=== PATIENT | male | born 2000 | race Caucasian/White ===

== ENCOUNTER 2025-05-25 11:45 | Emergency (ER) | payer MEDICAID ==
[~2025-05-25] VITALS: Ht 165.1 cm; Wt 75.0 kg
[2025-05-25 11:54] VITALS: BP 119/80; PULSE 84; RESP 15; TEMP 98.1; O2SAT 99
[2025-05-25] MEDS ORDERED: CIPR10DR RIGHT EAR (12:36)
--- NOTE | 2025-05-25 12:36 | Physician Documentation ---
History of Present Illness ~ Chief Complaint: Ear Pain Stated Complaint: EAR PAIN Time Seen by MD: 12:18 Source: patient Mode of Arrival: POV Exam Limitations: no limitations HPI 44-year-old male with complaints of right ear pain x4 days. No discharge muffled hearing. No fevers. Medication Reconciliation Allergies: Coded Allergies: No Known Allergies (Unverified , 05/25/25) Past Medical History Past Medical History: No Pertinent History Past Surgical History: noncontributory Lives with: Family Lives In: Home Occupation: employed Review of Systems All Other Systems at this time: Reviewed and Negative ENT: Reports: see HPI Physical Exam Vital Signs: RN Vital Signs have been reviewed: Yes, Temperature: 98.1, Source: Oral, Heart Rate: 84, Respiratory Rate: 15, BP: 119/80, Pulse Oximetry: 99, Weight: 75.000 Oxygen Flow Rate: 0 Physical Exam General: Alert, no apparent distress. HEENT: moist mucous membranes. Effusion noted bilaterally no erythema to tympanic membrane external canal of the right ear with mild erythema and inflammation. Neck: Full range of motion. Respiratory: No respiratory distress speaking in full sentences Chest: No accessory muscle use. Cardiovascular: Appears well perfused Neurologic: Oriented x4. Psychiatric: Normal mood and affect. Skin: Normal color, warm and dry. No edema, no ecchymosis. Progress Results/Orders Results/Orders Vital Signs 05/25/25 11:54 Temp 98.1 Pulse 84 Resp 15 B/P (MAP) 119/80 Pulse Ox 99 O2 Flow Rate 0 Medical Decision Making Additional information obtaine: N/A Findings Inflammation and erythema to the external canal possible otitis externa ear drops have been prescribed to follow up with primary care Ear Diff. Dx: Considerations: Include: Cerumen impaction, Foreign body, Otitis externa, Otitis media Eye Diff. Dx: Considerations: Include: Other Nose Diff. Dx: Considerations: Include: Other Tooth Diff. Dx: Considerations: Include: Other Throat Diff Dx: Considerations: Include: Other Departure Time of Disposition: 12:35 Disposition: 01 HOME / SELF CARE / HOMELESS Impression: Primary Impression: Otitis externa Condition: Stable Discharge Instructions: Earache, Adult Additional Instructions: Use antibiotic drops as prescribed follow up as needed Referrals: NO PRIMARY CARE PROVIDER (PCP) Prescriptions Ciprofloxacin Hcl/Hc Otic Susp* (Cipro Hc Otic Susp*) 10 Ml Bottle 3 DROP RIGHT EAR Q12H for 7 Days, #10 ML Prov: BETH TAI NP 05/25/25 Education Educated: Patient Educated regarding: diagnosis, treatment, need for follow up Signature Scribe Signature: No scribe Attestation: The note accurately reflects work and decisions made by me.Beth Tai - NIGHTMAN 05/25/25 12:36 BETH TAI NP May 25, 2025 12:36
== END 2025-05-25 12:47 | disposition home or self-care (01) ==
LOC: ER 11:46
DX: H60.91 Unspecified otitis externa, right ear (principal)
CPT/HCPCS: 99283